=== PATIENT | female | born 1940 | race Caucasian/White ===

== ENCOUNTER 2021-12-16 11:06 | Outpatient (CLI) | payer MEDICARE | END 2021-12-16 11:07 | disposition home or self-care (01) | LOC: BURRAD 11:06 | PROVIDERS: ATTEND Family Medicine | DX: M54.2 Cervicalgia (principal); M50.31 Other cervical disc degeneration, high cervical region | CPT/HCPCS: 72040 ==

== ENCOUNTER 2022-12-27 17:14 | Emergency (ER) | payer MEDICARE ==
[2022-12-27] MEDS ORDERED: Ketorolac Tromethamine 30 MG/ML VIAL ONE (17:23)
[2022-12-27] MEDS ORDERED: Aspirin Chewable 81 MG TAB ONE (17:27)
[2022-12-27 17:30] LABS: #Basophils 0.1 thou/uL (0.0-0.2); #Eosinphils 0.1 thou/uL (0.0-0.7); #Lymphocytes 2.8 thou/uL (1.20-3.40); #Monocytes 0.6 thou/uL (0.11-0.59); #Neutrophils 4.6 thou/uL (1.40-6.50); %Basophils 1.4 % (0.0-1.0); %Eosinophils 1.7 % (0.0-10.0); %Monocytes 7.4 % (0.0-10.0); %Neutrophils 55.4 % (42.0-75.0); Hemoglobin 14.2 g/dL (12.0-16.0); Mean Corpuscular HGB CONC 31.5 g/dL (32.0-36.0); Mean Corpuscular Hemoglobin 30.6 pg (27.0-31.0); Mean Corpuscular Volume 97.1 fl (78.0-98.0); Mean Platelet Volume 9.4 fL (7.4-10.4); Platelet Count 246 10x3/uL (130-400); RBC Distribution Width 11.9 % (11.5-14.5); Red Blood Cell (RBC) Count 4.64 mill/uL (4.20-5.40); White Blood Cell (WBC) Count 8.3 10x3/uL (4.8-10.8)
[2022-12-27 17:48] LABS: ALT (SGPT) 11 U/L (8-55); AST (SGOT) 19 U/L (5-34); Albumin 4.7 g/dL (3.4-4.8); Alkaline Phosphatase 63 U/L (40-110); Anion Gap 17 mmol/L (10-20); BUN (Urea Nitrogen) 8 mg/dL (9.8-20.1); Bilirubin, Total 0.6 mg/dL (0.2-1.2); Calc. Creatinine Clearance 0 mL/min (70-130); Calcium 10.2 mg/dL (7.8-10.44); Carbon Dioxide 26 mmol/L (23-31); Chloride 102 mmol/L (98-107); Estimated GFR 77; Globulin 2.7 g/dL (2.4-3.5); Glucose 101 mg/dL (83-110); Lipase 14 U/L (8-78); Potassium 3.3 mmol/L (3.5-5.1); Protein, Total 7.4 g/dL (5.8-8.1); Sodium 142 mmol/L (136-145); Troponin I Less than 0.010 ng/mL (< 0.028)
[2022-12-27] MEDS ORDERED: Pantoprazole 40 MG VIAL ONE (18:09)
[2022-12-27] MEDS ORDERED: Ondansetron PF 4 MG/2 ML Vial ONE (18:09)
[2022-12-27] MEDS ORDERED: hydrALAZINE 20 MG/ML VIAL ONE (18:21)
== END 2022-12-27 19:46 | disposition short-term general hospital (02) ==
LOC: BURERS 17:14
DX: I10 Essential (primary) hypertension (principal)
CPT/HCPCS: 71045; 80053; 83690; 83735; 84484; 85025; 93005; 96361; 96374; 96375; 99285; J0360; C9113; J1885; J2405

== ENCOUNTER 2024-02-29 11:39 | Outpatient (CLI) | payer MEDICARE | END 2024-02-29 11:40 | disposition home or self-care (01) | LOC: BURRAD 11:39 | PROVIDERS: ATTEND Nurse Practitioner Family | DX: M25.551 Pain in right hip (principal); Z96.641 Presence of right artificial hip joint | CPT/HCPCS: 72170 ==

== ENCOUNTER 2024-03-13 08:45 | Emergency (ER) | payer MEDICARE ==
[2024-03-13] MEDS ORDERED: Ondansetron PF 4 MG/2 ML Vial ONE (09:38)
[2024-03-13] MEDS ORDERED: Morphine 4 MG/ML VIAL ONE (09:38)
[2024-03-13] MEDS ORDERED: Pantoprazole 40 MG VIAL ONE (09:38)
[2024-03-13 09:55] LABS: #Basophils 0.1 thou/uL (0.0-0.2); #Eosinophils 0.2 thou/uL (0.0-0.7); #Lymphocytes 1.3 thou/uL (1.20-3.40); #Monocytes 0.5 thou/uL (0.11-0.59); %Basophils 1.6 % (0.0-1.0); %Eosinophils 3.2 % (0.0-10.0); %Lymphocytes 25.6 % (21.0-51.0); %Monocytes 9.2 % (0.0-10.0); %Neutrophils 60.5 % (42.0-75.0); Hematocrit 39.7 % (36.0-47.0); Mean Corpuscular HGB CONC 32.7 g/dL (32.0-36.0); Mean Corpuscular Hemoglobin 29.7 pg (27.0-31.0); Mean Corpuscular Volume 90.8 fl (78.0-98.0); Mean Platelet Volume 8.2 fL (7.4-10.4); Platelet Count 237 10x3/uL (130-400); RBC Distribution Width 11.6 % (11.5-14.5); Red Blood Cell (RBC) Count 4.37 mill/uL (4.20-5.40)
[2024-03-13 10:05] LABS: Prothrombin Time 13.1 sec (12.0-14.7)
[2024-03-13 10:13] LABS: ALT (SGPT) 14 U/L (8-55); AST (SGOT) 17 U/L (5-34); Albumin 4.1 g/dL (3.4-4.8); Alkaline Phosphatase 54 U/L (40-110); Anion Gap 13 mmol/L (10-20); BUN (Urea Nitrogen) 10 mg/dL (9.8-20.1); Bilirubin, Total 0.5 mg/dL (0.2-1.2); Calc. Creatinine Clearance 0 mL/min (70-130); Calcium 9.9 mg/dL (7.8-10.44); Carbon Dioxide 28 mmol/L (23-31); Chloride 105 mmol/L (98-107); Estimated GFR 81; Globulin 2.7 g/dL (2.4-3.5); Glucose 107 mg/dL (83-110); Potassium 3.5 mmol/L (3.5-5.1); Protein, Total 6.8 g/dL (5.8-8.1); Sodium 142 mmol/L (136-145)
[2024-03-13 10:53] LABS: Bilirubin Negative (Negative); Blood, Urine Trace (Negative); Clarity Clear (Clear); Glucose, Urine (Dipstick) Negative (Negative); Ketone, Urine Negative (Negative); Leukocyte Small (Negative); Nitrite Negative (Negative); Protein, Urine (Dipstick) Negative (Neg-Trace); Specific Gravity, Urine 1.015 (1.005-1.030); Urobilinogen 0.2 mg/dL (Less than 2); pH, Urine 7.5 (5.0-9.0)
[2024-03-13 11:51] LABS: Bacteria/HPF 1+ HPF (None Seen); CAUTI Indications for Culture Fever or rigors; RBC/HPF 0-3 HPF (0-3); Renal Epithelial 0-3 HPF (None Seen); Squamous Epithelial 0-3 HPF (0-3); WBC/HPF 0-3 HPF (0-3)
[2024-03-13 11:56] LABS: Urine Culture Reflex No No
[2024-03-13 13:16] LABS: Hematocrit 36.2 % (36.0-47.0); Hemoglobin 11.7 g/dL (12.0-16.0)
[2024-03-13] MEDS ORDERED: Iopamidol 370 76% 100 ML VIAL ONE (14:58)
== END 2024-03-13 14:45 | disposition short-term general hospital (02) ==
LOC: BURERS 08:45
DX: K92.2 Gastrointestinal hemorrhage, unspecified (principal); I10 Essential (primary) hypertension
CPT/HCPCS: 74177; 80053; 81001; 85014; 85018; 85025; 85610; 94760; 96374; 96375; 99285; J2272; J2405; J2470; Q9967; 36415